=== PATIENT | female | born 1960 | race Caucasian/White ===

== ENCOUNTER → 2017-12-02 | Outpatient (CLI) | payer OTHER ==
[~2017-12-02] MED LIST: ALBUTEROL2.5 MG/31 IH; ALLEGRA180 MG PO; BYSTOLIC 5 MG5 M1 PO; FUROSEMIDE 40 M40 M1 PO; GLUCOPHAGE500 MG PO; K-DUR 20 MEQ T20 MEQ PO; LISINOPRIL20 MG PO; MEDROXYPROGESTERONE IM; PREVACID15 MG PO; PROAIR RESPICL90 MCG IH; PROVENTIL17 G1 IH; SINGULAIR 10 MG10 M1 PO; SYMBICORT160 MCG/4. INH; SYNTHROID50 MCG PO; TOPICORT 0.25%15 G1 TOP; VISTARIL50 MG PO; VITAMIN B-12500 MCG PO; VITAMIN D 5050000 I1 PO; VITAMIN D1000 UNI1 PO
[2017-12-02 07:15] LABS: ABSOLUTE EOSINOPHILS 0.1 thou/uL (0.0-0.7); ABSOLUTE LYMPHOCYTES 1.6 thou/uL (0.8-5.3); ABSOLUTE MONOCYTES 0.5 thou/uL (0.0-1.2); ABSOLUTE NEUTROPHILS 3.3 thou/uL (1.6-8.1); BASOPHILS 0.8 %; EOSINOPHILS 1.8 %; HEMOGLOBIN 14.6 gm/dL (12.0-15.0); LYMPHOCYTES 29.3 %; MCH 29.9 pg (26.0-34.0); MCHC 33.2 g/dL (28.0-37.0); MONOCYTES 8.9 %; MPV 8.8 fl. (7.2-11.1); NUCLEATED RBCS 0 /100WBC; PLATELET COUNT* 231 thou/uL (150-400); POLYS 59.2 %; RBC 4.89 mil/uL (4.20-5.00); RDW-CV 14.3 % (10.5-14.5); WBC 5.5 thou/uL (4.0-11.0)
[2017-12-02 07:35] LABS: ALBUMIN 3.5 g/dL (3.4-5.0); CALCIUM 9.3 mg/dL (8.5-10.1); CREATININE 1.2 mg/dL (0.6-1.3); POTASSIUM 4.1 mmol/L (3.5-5.1); TOTAL BILIRUBIN 0.4 mg/dL (<0.1-1.0); TOTAL PROTEIN 7.2 g/dL (6.4-8.2)
== END ==
LOC: M.RAD 06:49 → M.LAB 06:49
PROVIDERS: Family Medicine
DX: I10 Essential (primary) hypertension (principal); J98.4 Other disorders of lung; E55.9 Vitamin D deficiency, unspecified; E03.9 Hypothyroidism, unspecified; D86.9 Sarcoidosis, unspecified; R53.83 Other fatigue

== ENCOUNTER → 2018-07-01 | Outpatient (CLI) | payer OTHER ==
[2018-07-01 08:45] LABS: ABSOLUTE EOSINOPHILS 0.1 thou/uL (0.0-0.7); ABSOLUTE LYMPHOCYTES 1.5 thou/uL (0.8-5.3); ABSOLUTE MONOCYTES 0.5 thou/uL (0.0-1.2); ABSOLUTE NEUTROPHILS 3.2 thou/uL (1.6-8.1); BASOPHILS 0.6 %; EOSINOPHILS 1.9 %; HEMATOCRIT 43.2 % (37.0-47.0); HEMOGLOBIN 14.1 gm/dL (12.0-15.0); MCHC 32.7 g/dL (28.0-37.0); MCV 91.5 fL (80.0-100.0); MONOCYTES 8.7 %; MPV 9.2 fl. (7.2-11.1); NUCLEATED RBCS 0 /100WBC; PLATELET COUNT* 260 thou/uL (150-400); POLYS 60.8 %; RBC 4.72 mil/uL (4.20-5.00); RDW-CV 14.3 % (10.5-14.5); WBC 5.3 thou/uL (4.0-11.0)
[2018-07-01 09:00] LABS: ANION GAP 3 mmol/L (7-16); BUN 17 mg/dL (7-18); CALCIUM 9.1 mg/dL (8.5-10.1); CHLORIDE 104 mmol/L (98-107); CO2 32 mmol/L (21-32); CREATININE 1.2 mg/dL (0.6-1.3); GLUCOSE 92 mg/dL (70-99); POTASSIUM 3.7 mmol/L (3.5-5.1); SODIUM 139 mmol/L (136-145)
[2018-07-01 09:05] LABS: ALBUMIN 3.6 g/dL (3.4-5.0); ALKALINE PHOSPHATASE 65 U/L (46-116); CHOLESTEROL 189 mg/dL (<200); HDL CHOLESTEROL 81 mg/dL (>40); LDL CHOLESTEROL 84 mg/dL (<100); SGOT 14 U/L (15-37); SGPT 29 U/L (30-65); TC:HDL 2.3 Ratio (Not establshd); TOTAL BILIRUBIN 0.5 mg/dL (<0.1-1.0); TOTAL PROTEIN 7.3 g/dL (6.4-8.2); TRIGLYCERIDE 120 mg/dL (<150); VLDL 24 mg/dL (<40)
[2018-07-01 09:09] LABS: SERUM ASSESSMENT Clear
[2018-07-02 02:09] LABS: GLYCOHEMOGLOBIN (HGB A1C) 5.2 % (4.8-5.6)
== END ==
LOC: M.LAB 06:40
PROVIDERS: Family Medicine
DX: Z13.220 Encounter for screening for lipoid disorders (principal); I10 Essential (primary) hypertension; R53.83 Other fatigue; E03.9 Hypothyroidism, unspecified; E11.9 Type 2 diabetes mellitus without complications

== ENCOUNTER → 2018-12-23 | Outpatient (CLI) | payer OTHER | LOC: M.RAD 14:44 | DX: Z12.31 Encounter for screening mammogram for malignant neoplasm of breast (principal) ==

== ENCOUNTER → 2019-05-12 | Outpatient (CLI) | payer OTHER ==
[2019-05-12 14:47] LABS: ABSOLUTE EOSINOPHILS 0.1 thou/uL (0.0-0.7); ABSOLUTE LYMPHOCYTES 2.2 thou/uL (0.8-5.3); ABSOLUTE MONOCYTES 0.5 thou/uL (0.0-1.2); ABSOLUTE NEUTROPHILS 3.9 thou/uL (1.6-8.1); BASOPHILS 0.7 %; EOSINOPHILS 1.2 %; HEMATOCRIT 43.2 % (37.0-47.0); HEMOGLOBIN 14.5 gm/dL (12.0-15.0); MCHC 33.5 g/dL (28.0-37.0); MCV 89.4 fL (80.0-100.0); MONOCYTES 7.6 %; MPV 8.7 fl. (7.2-11.1); NUCLEATED RBCS 0 /100WBC; PLATELET COUNT* 269 thou/uL (150-400); POLYS 58.5 %; RBC 4.83 mil/uL (4.20-5.00); RDW-CV 14.2 % (10.5-14.5); WBC 6.7 thou/uL (4.0-11.0)
[2019-05-12 15:01] LABS: CALCIUM 8.8 mg/dL (8.5-10.1); CREATININE 1.1 mg/dL (0.6-1.3); POTASSIUM 3.5 mmol/L (3.5-5.1)
== END ==
LOC: M.LAB 14:17
PROVIDERS: Family Medicine
DX: R19.7 Diarrhea, unspecified (principal); R10.32 Left lower quadrant pain

== ENCOUNTER → 2019-08-11 | Outpatient (CLI) | payer OTHER ==
[~2019-08-11] VITALS: Ht 160 cm; Wt 139.7 kg
[2019-08-11] VITALS (8 sets, daily range): BP systolic 124–1321; BP diastolic 58–74
[~2019-08-11] MED LIST changes: +BUPROPION XL300 MG PO; +MAXZIDE 75-501 EACH PO; +TOPROL XL50 MG PO
[2019-08-11 13:36] LABS: HEMATOCRIT 41.3 % (37.0-47.0); MCHC 33.9 g/dL (28.0-37.0); MCV 88.7 fL (80.0-100.0); MPV 9.1 fl. (7.2-11.1); RBC 4.66 mil/uL (4.20-5.00); WBC 5.9 thou/uL (4.0-11.0)
[2019-08-11 13:44] LABS: APTT 24.5 Seconds (25.0-31.3); INR 1.1; PROTIME 10.9 Seconds (9.20-11.50)
[2019-08-11 13:49] LABS: ANION GAP 9 mmol/L (7-16); BUN 22 mg/dL (7-18); CALCIUM 9.2 mg/dL (8.5-10.1); CHLORIDE 103 mmol/L (98-107); CO2 29 mmol/L (21-32); CREATININE 1.3 mg/dL (0.6-1.3); GLUCOSE 95 mg/dL (70-99); POTASSIUM 3.2 mmol/L (3.5-5.1); SODIUM 141 mmol/L (136-145)
[2019-08-11 13:55] LABS: ALBUMIN 3.6 g/dL (3.4-5.0); ALKALINE PHOSPHATASE 59 U/L (46-116); CHOLESTEROL 250 mg/dL (<200); HDL CHOLESTEROL 85 mg/dL (>40); LDL CHOLESTEROL 141 mg/dL (<100); SERUM ASSESSMENT Clear; SGOT 23 U/L (15-37); SGPT 40 U/L (30-65); TC:HDL 2.9 Ratio (Not establshd); TOTAL BILIRUBIN 0.5 mg/dL (<0.1-1.0); TOTAL PROTEIN 6.9 g/dL (6.4-8.2); TRIGLYCERIDE 121 mg/dL (<150); VLDL 24 mg/dL (<40)
--- NOTE | 2019-08-11 15:43 | EKG ---
[place] [address] ELECTROCARDIOGRAM REPORT Name: BALBIR VILLASEÑOR Room: [facility]#: [id number] Admission: 08/11/19 Attend Phys: Roger Mcdonald MD Discharge: Date of : 62 Report #: [id number] THIS REPORT FOR: //name// [facility] Test Date: 2019-08-11 Test Time: 13:09:20 Pat Name: BALBIR VILLASEÑOR Department: Room: Gender: F Solution Manager: : 1960 Requested By: Roger Mcdonald Order Number: [id number] Reading MD: Roger Mcdonald Measurements Intervals [place] Rate: 60 P: 47 AL: 154 QRS: 18 QRSD: 117 T: -11 QT: 437 QTc: 437 Interpretive Statements Sinus rhythm ST depression diffusely, consider ischemia Compared to ECG 10/27/2012 09:24:47 no significant changes noted. Electronically Signed On 08-11-2019 15:43:38 NURSING HOME PHYSICIAN by Roger Mcdonald [email or web address] <ELECTRONICALLY SIGNED> By: Roger Mcdonald MD, [facility] 08/11/19 1543 1309 1309 Roger Mcdonald MD, FACC /EPI
--- NOTE | 2019-08-12 16:52 | CARD ---
[address] [address] CARDIAC CATH REPORT Name: BALBIR VILLASEÑOR Room: [facility] Lynda#: [id number] Admission: 08/11/19 Attend Phys: Roger Mcdonald MD Discharge: Date of : 62 Report #: [id number] THIS REPORT FOR: //name// APPROVED REPORT Study performed: 08/11/2019 14:12:02 Patient Details Patient Status: Out-Patient Room #: The patient is a 58 year-old female Event Personnel Sam Hilton RTR Monitor, Qian Morales RN RN, Rosa Zendejas RTR ScrubTamara Michael Tractor Sweeper Driver Procedures Performed Left Heart Cath w/or w/o Coronaries [id number] [facility] Left Heart Cath w/or w/o Coronaries [id number] [facility] Procedure Narrative The patient was brought electively to the Cardiac Catheterization Laboratory and was prepped and draped in a sterile manner. The right wrist was infiltrated with 2% Lidocaine subcutaneous anesthesia. A Slender Glidesheath sheath was inserted into the right radial artery. Coronary angiography was performed using coronary diagnostic catheters. The right coronary system was accessed and visualized with a DiagnosticDCR: [place] 4.0 5fr catheter. The left coronary system was accessed and visualized with a JL4 6frDiagnostic catheter. The left ventricle was accessed and visualized with a Diagnostic Pigtail catheter. Hemostasis was obtained with manual pressure following sheath removal without any complications. The patient tolerated the procedure well and there were no complications associated with the procedure. There was no hematoma. Intraoperative Conscious Sedation Sedation start time: 2:47pm Case end Time: 3:08pm Fentanyl 75 mcg Versed 2 mg Dose: 1635.03 mGy Contrast Type and Amount: Visipaque 128 ml Diagnostic Cath Left Main The left main coronary artery is normal and bifurcates into a left anterior descending [place] [address] CARDIAC CATH REPORT Name: BALBIR VILLASEÑOR [id number] Admission: 08/11/19 Attend Phys: Roger Mcdonald MD Discharge: Date of : 62 Report #: [id number] LAD The left anterior descending coronary artery is normal in its proximal mid and distal portion. Diagonal 1 First diagonal is a moderate-sized vessel that is normal. Circumflex The circumflex coronary artery is normal in its proximal mid and distal portion. OM1 The first obtuse marginal branch is large branched and normal. OM2 The second obtuse marginal branch is small in caliber and normal. OM3 The third obtuse marginal branches small in caliber and normal. Right Coronary The right coronary artery is normal in its proximal mid and distal portion. R PDA The PDA is normal. Left Ventriculography The left ventricle is normal in size with normal contractility. The left ventricular ejection fraction is estimated to be 60-65%. Left ventricular wall motion abnormalities are not present. Hemodynamics The aortic pressure is 134/54 mmHg with a mean of 56 mmHg. The left ventricular pressure is 128/7 mmHg with a mean of mmHg. The left ventricular end diastolic pressure is 23 mmHg. Conclusion 1. Normal coronary arteries 2. Normal left ventricular systolic function 3. Elevated left ventricular end-diastolic pressure consistent with chronic diastolic heart failure. Recommendations 1. Continue medical management and risk factor modification. <ELECTRONICALLY SIGNED> By: Roger Mcdonald MD, FACC 08/12/191650 50 50Micliliana Mcdonald MD, FACC /INF
== END | disposition home or self-care (01) ==
LOC: M.CL 11:52
PROVIDERS: Internal Medicine Cardiovascular Disease
DX: R94.39 Abnormal result of other cardiovascular function study (principal); I11.0 Hypertensive heart disease with heart failure; I50.1 Left ventricular failure, unspecified; E11.9 Type 2 diabetes mellitus without complications; J45.909 Unspecified asthma, uncomplicated; E03.9 Hypothyroidism, unspecified; Z98.890 Other specified postprocedural states; Z88.2 Allergy status to sulfonamides; Z88.8 Allergy status to other drugs, medicaments and biological substances; Z79.899 Other long term (current) drug therapy; Z79.01 Long term (current) use of anticoagulants

== ENCOUNTER → 2019-12-20 | Outpatient (CLI) | payer OTHER ==
[2019-12-20 11:11] LABS: HEMOGLOBIN 14.8 gm/dL (12.0-15.0); MCH 30.8 pg (26.0-34.0); MCHC 34.2 g/dL (28.0-37.0); NUCLEATED RBCS 0 /100WBC; RBC 4.81 mil/uL (4.20-5.00); WBC 4.5 thou/uL (4.0-11.0)
[2019-12-20 11:14] LABS: ABSOLUTE BASOPHILS 0.1 thou/uL (0.0-0.2); ABSOLUTE EOSINOPHILS 0.1 thou/uL (0.0-0.7); ABSOLUTE LYMPHOCYTES 1.6 thou/uL (0.8-5.3); ABSOLUTE MONOCYTES 0.4 thou/uL (0.0-1.2); ABSOLUTE NEUTROPHILS 2.4 thou/uL (1.6-8.1); BASOPHILS 1.4 %; EOSINOPHILS 1.7 %; HEMATOCRIT 43.4 % (37.0-47.0); LYMPHOCYTES 34.9 %; MCV 90.1 fL (80.0-100.0); MPV 9.1 fl. (7.2-11.1); PLATELET COUNT* 233 thou/uL (150-400); RDW-CV 14.7 % (10.5-14.5)
[2019-12-20 11:14] LABS: URINE BILIRUBIN NEGATIVE (Negative); URINE BLOOD NEGATIVE (Negative); URINE CLARITY CLEAR; URINE COLOR YELLOW; URINE GLUCOSE-RANDOM NEGATIVE (Negative); URINE KETONES NEGATIVE (Negative); URINE LEUKOCYTES-REFLEX NEGATIVE (Negative); URINE NITRITE-REFLEX NEGATIVE (Negative); URINE PROTEIN NEGATIVE (Negative); URINE SPECIFIC GRAVITY 1.025 (1.005-1.030); URINE UROBILINOGEN 0.2 E.U./dl (0.2-1.0)
[2019-12-20 11:22] LABS: ALBUMIN 3.4 g/dL (3.4-5.0); ALKALINE PHOSPHATASE 52 U/L (46-116); ANION GAP 7 mmol/L (7-16); BUN 24 mg/dL (7-18); CALCIUM 8.8 mg/dL (8.5-10.1); CHLORIDE 101 mmol/L (98-107); CHOLESTEROL 219 mg/dL (<200); CO2 31 mmol/L (21-32); CREATININE 1.4 mg/dL (0.6-1.3); GLUCOSE 96 mg/dL (70-99); HDL CHOLESTEROL 78 mg/dL (>40); LDL CHOLESTEROL 111 mg/dL (<100); POTASSIUM 3.7 mmol/L (3.5-5.1); SERUM ASSESSMENT Clear; SGOT 19 U/L (15-37); SGPT 36 U/L (30-65); SODIUM 139 mmol/L (136-145); TC:HDL 2.8 Ratio (Not establshd); TOTAL BILIRUBIN 0.5 mg/dL (<0.1-1.0); TOTAL PROTEIN 6.9 g/dL (6.4-8.2); TRIGLYCERIDE 153 mg/dL (<150); VLDL 31 mg/dL (<40)
[2019-12-21 02:07] LABS: GLYCOHEMOGLOBIN (HGB A1C) 5.4 % (4.8-5.6)
== END ==
LOC: M.LAB 10:51
PROVIDERS: Family Medicine
DX: E03.9 Hypothyroidism, unspecified (principal); E11.9 Type 2 diabetes mellitus without complications; I10 Essential (primary) hypertension; Z68.43 Body mass index [BMI] 50.0-59.9, adult

== ENCOUNTER → 2020-03-02 | Outpatient (CLI) | payer OTHER | LOC: M.MRI 06:16 | PROVIDERS: ATTEND Family Medicine | DX: M51.27 Other intervertebral disc displacement, lumbosacral region (principal); M25.78 Osteophyte, vertebrae; M48.061 Spinal stenosis, lumbar region without neurogenic claudication; W19.XXXA Unspecified fall, initial encounter; M25.461 Effusion, right knee; M41.86 Other forms of scoliosis, lumbar region ==

== ENCOUNTER 2020-08-22 15:09 | Observation (INO) | payer OTHER ==
[~2020-08-22] VITALS: Ht 157.5 cm; Wt 160.1 kg
[~2020-08-22 15:09] MED LIST changes: -TOPICORT 0.25%15 G1 TOP; +TOPICORT 0.25%15 GM TOP; -VITAMIN D 5050000 I1 PO; +VITAMIN D250 MCG PO
[2020-08-22 15:14] VITALS: BP 172/74
[2020-08-22 16:03] LABS: ABSOLUTE BASOPHILS 0.1 thou/uL (0.0-0.2); ABSOLUTE EOSINOPHILS 0.1 thou/uL (0.0-0.7); ABSOLUTE LYMPHOCYTES 1.8 thou/uL (0.8-5.3); ABSOLUTE MONOCYTES 0.6 thou/uL (0.0-1.2); BASOPHILS 0.9 %; EOSINOPHILS 2.1 %; HEMATOCRIT 39.5 % (37.0-47.0); HEMOGLOBIN 13.1 gm/dL (12.0-15.0); LYMPHOCYTES 27.8 %; MCH 29.8 pg (26.0-34.0); MCHC 33.1 g/dL (28.0-37.0); MCV 90.1 fL (80.0-100.0); MONOCYTES 9.1 %; NUCLEATED RBCS 0 /100WBC; PLATELET COUNT* 228 thou/uL (150-400); POLYS 60.1 %; RBC 4.39 mil/uL (4.20-5.00); RDW-CV 15.1 % (10.5-14.5); WBC 6.6 thou/uL (4.0-11.0)
[2020-08-22 16:11] LABS: CALCIUM 9.1 mg/dL (8.5-10.1); CREATININE 1.5 mg/dL (0.6-1.3)
[2020-08-22 16:16] LABS: APTT 23.6 Seconds (25.0-31.3); PROTIME 10.6 Seconds (9.20-11.50)
[2020-08-22 16:22] LABS: ALBUMIN 3.1 g/dL (3.4-5.0); TOTAL BILIRUBIN 0.4 mg/dL (<0.1-1.0); TOTAL PROTEIN 6.7 g/dL (6.4-8.2)
--- NOTE | 2020-08-22 16:45 | EKG ---
[place] [address] ELECTROCARDIOGRAM REPORT Name: BALBIR VILLASEÑOR [facility]#: [id number] Admission: 08/22/20 Attend Phys: Discharge: Date of : 62 Date of Service: 08/22/20 1516 Report #: [id number] THIS REPORT FOR: //name// [facility] ED Test Date: 2020-08-22 Test Time: 15:16:03 Pat Name: BALBIR VILLASEÑOR Department: Room: Gender: F Composition Instructor: [place] : 1960 Requested By: Eduin Kasper Order Number: [id number] MD: Campos Crespo Measurements Intervals [place] Rate: 65 P: 43 NM: 154 QRS: 23 QRSD: 101 T: 5 QT: 398 QTc: 414 Interpretive Statements Sinus rhythm Left atrial enlargement Minimal ST depression, inferior leads Compared to ECG 08/11/2019 13:09:20 ST (T wave) deviation still present Electronically Signed On 08-22-2020 16:45:08 TREASURY AGENT by Campos Crespo [email or web address] <ELECTRONICALLY SIGNED> By: Campos Crespo MD, [facility] 08/22/20 1645 1516 1516 Campos Crespo MD, [facility] /EPI
[2020-08-22 22:41] VITALS: BP 163/70
[2020-08-23 02:42] VITALS: BP 140/60
[2020-08-23 05:40] VITALS: BP 112/69
[2020-08-23 10:00] VITALS: BP 128/70
[2020-08-23 10:08] LABS: CHOLESTEROL 209 mg/dL (<200); HDL CHOLESTEROL 73 mg/dL (>40); LDL CHOLESTEROL 114 mg/dL (<100); TC:HDL 2.9 Ratio (Not establshd); TRIGLYCERIDE 111 mg/dL (<150); TROPONIN-I LEVEL <0.06 ng/mL (<0.06); VLDL 22 mg/dL (<40)
[2020-08-23 10:11] LABS: SERUM ASSESSMENT Clear
[2020-08-23 13:15] VITALS: BP 128/70
[2020-08-23] MEDS ORDERED: LIPITOR10 MG PO (13:52)
[2020-08-23] MEDS ORDERED: PREDNISONE 10 M10 MG PO (13:52)
[2020-08-23 15:32] VITALS: BP 120/60
--- NOTE | 2020-08-23 16:32 | 2DMMODE ---
[place] [address] 2 D/M-MODE ECHOCARDIOGRAM Name: BALBIR VILLASEÑOR Room: [address] Rory Howell#: [id number] Admission: 08/22/20 Attend Phys: Stevan Rogers Discharge: Date of : 62 Date of Service: 08/23/20 1632 Report #: [id number] THIS REPORT FOR: cc: Brenda Grubbs Maggie M. DO Liston, Michael J. MD [facility] ~ APPROVED REPORT Study performed: 08/23/2020 14:39:29 EXAM: Comprehensive 2D, Doppler, and color-flow Echocardiogram Patient Location: In-Patient Room #: 55 Status: routine BSA: 2.44 HR: 77 bpm BP: 112/69 mmHg Rhythm: NSR Other Information Study Quality: Good Indications Chest Pain 2D Dimensions IVSd: 12.58 (7-11mm) LVOT Diam: 20.19 (18-24mm) LVDd: 51.61 mm PWd: 10.27 (7-11mm) Ascending Ao: 32.89 (22-36mm) LVDs: 30.58 (25-40mm) Aortic Root: 29.66 mm Volumes Left Atrial Volume (Systole) LA ESV Index: 17.90 mL/m2 Aortic Valve AoV Peak Yung.: 1.67 m/s AO Peak Gr.: 11.13 mmHg LVOT Max P.31 mmHg AO Mean Gr.: 6.65 mmHg LVOT Mean P.57 mmHg LVOT Max V: 1.35 m/s AO V2 VTI: 37.21 cm LVOT Mean V: 0.86 m/s MARIA TERESA (VTI): 2.66 cm2 LVOT V1 VTI: 30.95 [place] [address] 2 D/M-MODE ECHOCARDIOGRAM Name: BALBIR VILLASEÑOR Room: [address] M.R.#: [id number] Admission: 08/22/20 Attend Phys: Stevan Rogers Discharge: Date of : 62 Date of Service: 08/23/20 1632 Report #: [id number] Mitral Valve E/A Ratio: 1.20 MV Decel. Time: 190.62 ms MV E Max Yung.: 1.11 m/s MV PHT: 55.28 ms MVA (PHT): 3.98 cm2 TDI E/Lateral E': 7.40 E/Medial E': 6.53 Medial E' Yung.: 0.17 m/s Lateral E' Yung.: 0.15 m/s Pulmonary Valve PV Peak Yung.: 1.08 m/s PV Peak Gr.: 4.65 mmHg Left Ventricle The left ventricle is normal size. There is normal LV segmental wall motion. There is normal left ventricular wall thickness. Left ventricular systolic function is normal. LVEF is 55-60%. The left ventricular diastolic function is normal. Right Ventricle The right ventricle is normal size. The right ventricular systolic function is normal. Atria The left atrium size is normal. The right atrium size is normal. Aortic Valve The aortic valve is normal in structure. No aortic regurgitation is present. There is no aortic valvular stenosis. Mitral Valve The mitral valve is normal in structure. There is no mitral valve regurgitation noted. No evidence of mitral valve stenosis. Tricuspid Valve The tricuspid valve is normal in structure. Unable to assess PA pressure. Trace tricuspid regurgitation. Pulmonic Valve The pulmonary valve is normal in structure. There is no pulmonic valvular regurgitation[place] [address] 2 D/M-MODE ECHOCARDIOGRAM Name: BALBIR VILLASEÑOR [address]#: [id number] Admission: 08/22/20 Attend Phys: Stevan Rogers Discharge: Date of : 62 Date of Service: 08/23/20 1632 Report #: [id number] The aortic root is normal in size. The inferior vena cava is not visualized. Pericardium There is no pericardial effusion. <Conclusion> The left ventricle is normal size. There is normal left ventricular wall thickness. Left ventricular systolic function is normal. LVEF is 55-60%. The left ventricular diastolic function is normal. The inferior vena cava is not visualized. <ELECTRONICALLY SIGNED> By: Roger Mcdonald MD, FACC 08/23/20 1632 163 163 Roger Mcdonald MD, FACC /INF
--- NOTE | 2020-08-23 16:47 | EKG ---
[place] [address] ELECTROCARDIOGRAM REPORT Name: CHARLEENBALBIR Irene Room: [address]R.#: [id number] Admission: 08/22/20 Attend Phys: Stevan Rogers Discharge: Date of : 62 Date of Service: 08/23/20 1128 Report #: [id number] THIS REPORT FOR: //name// [facility] Test Date: 2020-08-23 Test Time: 11:28:50 Pat Name: BALBIR VILLASEÑOR Department: Room: [facility] Gender: F Mingler Operator: : 1960 Requested By: Stevan Rogers Order Number: [id number] Yared MD: Hill Velasquez Measurements Intervals [place] Rate: 58 P: 54 [place]: 152 QRS: 34 QRSD: 104 T: -12 QT: 425 QTc: 418 Interpretive Statements Sinus rhythm Probable left atrial enlargement Borderline repolarization abnormality Compared to ECG 08/22/2020 15:16:[address] segment depression is less prominent Electronically Signed On 08-23-2020 16:47:28 CERTIFIED TEACHER ASSISTANT by Hill Velasquez [email or web address] <ELECTRONICALLY SIGNED> By: Hill Velasquez MD, FAC 08/23/20 1647 1128 1128 Hill Velasquez MD, [facility] /EPI
[2020-08-23 17:04] VITALS: BP 120/60
--- NOTE | 2020-08-23 19:14 | NUR ---
PT ADMITTED TO ROOM 211 VIA CART FROM ED AT APPROXIMATELY 1330. REPORT RECEIVED FROM SAMIR RODRIGUEZ. PT ORIENTED TO ROOM AND CALL LIGHT. ADMISSION ASSESSMENT AND HISTORY COMPLETED CHARTED. SEPSIS NEGATIVE. PT DENIES ANY CHEST PAIN OR SHORTNESS OF BREATH. TRACING SR ON THE CERTIFIED ORTHOPTIST. ON RA SAT UPPER 90'S. PT UP AD ROMIE IN ROOM. CARDIO CONSULT IN PLACE- PER FATMATA ARANDA NP OK FOR PT TO DISCHARGE AFTER ECHO COMPLETED AND INTERPRETED. ECHO COMPLETED-REFER TO RESULTS. PREDNISONE AND LIPITOR CALLED INTO PHARMACY PER DR SARMIENTO. DISCHARGE ORDERS RECEIVED. DISCHARGE INSTRUCTIONS, CARE NOTES, SCRIPTS AND FOLLOW UP APPTS GIVEN TO PT. PT COMMUNICATES UNDERSTANDING OF DISCHARGE TEACHING. IV AND CERTIFIED ORTHOPTIST REMOVED. PT AWAITING RIDE AT THIS TIME.
== END 2020-08-23 19:24 | disposition home or self-care (01) ==
LOC: M.ERS 15:09 → M.TBA-ER 17:31 → M.2W 08-23 13:35
PROVIDERS: Emergency Medicine Emergency Medical Services; ADMIT Internal Medicine; ATTEND Internal Medicine
DX: J45.909 Unspecified asthma, uncomplicated (principal); R07.89 Other chest pain; F32.9 Major depressive disorder, single episode, unspecified; G47.33 Obstructive sleep apnea (adult) (pediatric); E03.9 Hypothyroidism, unspecified; I10 Essential (primary) hypertension; E66.01 Morbid (severe) obesity due to excess calories; E11.9 Type 2 diabetes mellitus without complications; Z87.891 Personal history of nicotine dependence; Z79.899 Other long term (current) drug therapy; Z68.44 Body mass index [BMI] 60.0-69.9, adult; Z20.828 Contact with and (suspected) exposure to other viral communicable diseases

== ENCOUNTER → 2020-09-06 | Outpatient (CLI) | payer OTHER ==
[~2020-09-06] MED LIST changes: +LIPITOR10 MG PO; +PREDNISONE 10 M10 MG PO
== END ==
LOC: M.CT 10:08
PROVIDERS: ATTEND Family Medicine
DX: J98.4 Other disorders of lung (principal); R16.0 Hepatomegaly, not elsewhere classified

== ENCOUNTER → 2020-11-22 | Outpatient (CLI) | payer OTHER ==
--- NOTE | 2020-11-27 00:03 | PF ---
[address] [address] PULMONARY FUNCTION REPORT Name: BALBIR VILLASEÑOR Room: [facility]#: [id number] Admission: 11/22/20 Attend Phys: Andrew Rosario MD Discharge: Date of : 62 Report #: [id number] THIS REPORT FOR: cc: Brenda Grubbs Maggie M. DO ~ Andrew Rosario MD DATE OF SERVICE: 11/22/2020 The FEV1/FVC ratio is normal at 78% with an FVC normal at 98% and FEV1 normal at 91%. The [id number] is decreased to 49%. The total lung capacity is normal, but close to the upper limit of normal at 111%. The residual volume is normal at 95%. The DLCO as adjusted for hemoglobin is normal at 88%. The patient's flow volume loop is concave upwards. The patient's flow volume loop is also blunted and inferiorly. IMPRESSION: 1. Minimal obstruction without evidence of reversibility. The patient's FEV1 is noted to be 2.16 liters. 2. In addition to the flow volume loop being concave upwards, which appears to be secondary to obstruction. The flow volume loop is also blunted inferiorly. This inferior blunting of the flow volume loop could be a normal variant; however, in the correct clinical circumstances, a variable upper airway obstruction can also lead to this picture. Clinical correlation is advised. 3. The lung volumes are normal with the total lung capacity is while within the normal range close to the upper limit of normal range likely due to underlying obstructive lung disease. 4. The DLCO is normal. <ELECTRONICALLY SIGNED> By: Andrew Rosario MD 11/27/20 0003 2215Adenisa Rosario MD /nt
== END ==
LOC: M.PUL 15:12
PROVIDERS: ATTEND Internal Medicine Critical Care Medicine
DX: R06.00 Dyspnea, unspecified (principal); Z88.8 Allergy status to other drugs, medicaments and biological substances; Z88.2 Allergy status to sulfonamides; Z88.5 Allergy status to narcotic agent

== ENCOUNTER → 2020-11-30 | Outpatient (CLI) | payer OTHER ==
--- NOTE | 2020-12-20 15:05 | SLEEP ---
[address] [address] SLEEP STUDY REPORT Name: BALBIR VILLASEÑOR Room: [facility]#: [id number] Admission: 11/30/20 Attend Phys: Andrew Rosario MD Discharge: Date of : 62 Report #: [id number] THIS REPORT FOR: cc: Brenda Grubbs Maggie M. DO Pervez, Adeel MD ~ This study has been reviewed in its entirety by a board certified sleep specialist DATE OF SERVICE: 11/30/2020 SLEEP STUDY INDICATION FOR SLEEP STUDY: Excessive daytime sleepiness and obstructive sleep apnea. INTERPRETATION: Total duration of the study is 436 minutes out of which she was asleep for 318 minutes with an overall sleep efficiency of 73%. Sleep onset was initially delayed occurring about half an hour after lying down in bed. REM onset was delayed to 210 minutes after sleep onset. N1 sleep duration is 11%, N2 duration is 54%, N3 duration 11% as well and REM duration is 23%. This is a split night sleep study. During initial part of the sleep study, the patient was not on positive airway pressure therapy for 138 minutes out of which she was asleep for 81 minutes. This entire duration was in non-REM sleep. The patient at this time did have multiple sleep-related respiratory events. These included 12 obstructive apneas in addition to 17 hypopneas and 10 respiratory effort-related arousals. The patient's overall apnea-hypopnea index was elevated to 21.5. Body position data indicates that the entire duration of sleep recorded during the diagnostic portion of the sleep study was on the left side. Mean heart rate at this time was 68, periodic limb movement index was elevated to 36. Most limb movements, however, were not associated with arousals. Periodic limb movement index with arousals was 9.6. There was significant sleep fragmentation observed with an arousal index elevated to 53. The patient was subsequently placed on a CPAP and was observed on CPAP therapy for 298 minutes. This included 286 minutes of sleep time, which in turn included 74 minutes of REM sleep. Mean heart rate was now 63. Periodic limb movement index improved to 13.2. Review of the CPAP titration indicates the patient did have a favorable response to CPAP therapy; however, adequate control [place] [address] SLEEP STUDY REPORT Name: BALBIR VILLASEÑOR Room: [facility]#: [id number] Admission: 11/30/20 Attend Phys: Andrew Rosario MD Discharge: Date of : 62 Report #: [id number] respirations could not be achieved and some hypopneas respiratory effort-related arousals as well as desaturations continued to occur. In summary, therefore, there is a partial but inadequate response to CPAP therapy. IMPRESSION: 1. Obstructive sleep apnea with an apnea-hypopnea index of 21.5. The patient spent 5.3 minutes below an O2 saturation of 90% during the diagnostic portion of the sleep study. 2. There is a partial but inadequate response to continuous positive airway pressure therapy as above. The patient has also reported that despite regular use of continuous positive airway pressure, there is considerable daytime sleepiness persisting. RECOMMENDATIONS: 1. I recommend proceeding to a repeat sleep study for a BiPAP titration. We will subsequently plan to switch her current CPAP over to BiPAP. 2. Weight loss is strongly recommended. 3. Recommend avoiding driving or other activities requiring vigilance if drowsy. This entire sleep study was reviewed by board certified sleep physician. <ELECTRONICALLY SIGNED> By: Andrew Rosario MD 12/20/20 1505 1448 1500Andrew Rosario MD /nt
== END ==
LOC: M.SLEEPLAB 11-23 20:00
PROVIDERS: ATTEND Internal Medicine Critical Care Medicine
DX: G47.33 Obstructive sleep apnea (adult) (pediatric) (principal); Z88.8 Allergy status to other drugs, medicaments and biological substances

== ENCOUNTER → 2021-01-24 | Outpatient (CLI) | payer OTHER | LOC: M.SLEEPLAB 21:00 | PROVIDERS: ATTEND Internal Medicine Critical Care Medicine | DX: G47.33 Obstructive sleep apnea (adult) (pediatric) (principal); Z88.8 Allergy status to other drugs, medicaments and biological substances ==

== ENCOUNTER → 2021-01-31 | Outpatient (CLI) | payer OTHER ==
[2021-01-31 12:18] LABS: ABSOLUTE EOSINOPHILS 0.2 thou/uL (0.0-0.7); ABSOLUTE LYMPHOCYTES 1.7 thou/uL (0.8-5.3); ABSOLUTE MONOCYTES 0.5 thou/uL (0.0-1.2); ABSOLUTE NEUTROPHILS 3.5 thou/uL (1.6-8.1); BASOPHILS 0.6 %; EOSINOPHILS 3.1 %; HEMOGLOBIN 13.7 gm/dL (12.0-15.0); LYMPHOCYTES 28.9 %; MCH 29.7 pg (26.0-34.0); MCHC 33.3 g/dL (28.0-37.0); MCV 89.1 fL (80.0-100.0); MONOCYTES 8.9 %; MPV 8.5 fl. (7.2-11.1); NUCLEATED RBCS 0 /100WBC; PLATELET COUNT* 231 thou/uL (150-400); POLYS 58.5 %; RBC 4.61 mil/uL (4.20-5.00); RDW-CV 14.9 % (10.5-14.5)
[2021-01-31 12:22] LABS: URINE BILIRUBIN NEGATIVE (Negative); URINE BLOOD NEGATIVE (Negative); URINE CLARITY CLEAR; URINE COLOR YELLOW; URINE GLUCOSE-RANDOM NEGATIVE (Negative); URINE KETONES NEGATIVE (Negative); URINE LEUKOCYTES-REFLEX NEGATIVE (Negative); URINE NITRITE-REFLEX NEGATIVE (Negative); URINE PROTEIN NEGATIVE (Negative); URINE SPECIFIC GRAVITY 1.025 (1.005-1.030); URINE UROBILINOGEN 0.2 E.U./dl (0.2-1.0)
[2021-01-31 12:30] LABS: ALBUMIN 3.4 g/dL (3.4-5.0); ALKALINE PHOSPHATASE 58 U/L (46-116); ANION GAP 6 mmol/L (7-16); BUN 20 mg/dL (7-18); CALCIUM 9.6 mg/dL (8.5-10.1); CHLORIDE 102 mmol/L (98-107); CHOLESTEROL 215 mg/dL (<200); CO2 32 mmol/L (21-32); CREATININE 1.3 mg/dL (0.6-1.3); GLUCOSE 91 mg/dL (70-99); HDL CHOLESTEROL 78 mg/dL (>40); LDL CHOLESTEROL 112 mg/dL (<100); POTASSIUM 3.3 mmol/L (3.5-5.1); SGOT 25 U/L (15-37); SGPT 49 U/L (30-65); SODIUM 140 mmol/L (136-145); TC:HDL 2.8 Ratio (Not establshd); TOTAL BILIRUBIN 0.6 mg/dL (<0.1-1.0); TOTAL PROTEIN 7.1 g/dL (6.4-8.2); TRIGLYCERIDE 128 mg/dL (<150); VLDL 26 mg/dL (<40)
[2021-01-31 12:32] LABS: SERUM ASSESSMENT Clear
[2021-02-01 02:06] LABS: GLYCOHEMOGLOBIN (HGB A1C) 5.7 % (4.8-5.6)
== END ==
LOC: M.LAB 11:58
PROVIDERS: ATTEND Family Medicine
DX: E11.9 Type 2 diabetes mellitus without complications (principal); E03.9 Hypothyroidism, unspecified; I10 Essential (primary) hypertension; Z68.44 Body mass index [BMI] 60.0-69.9, adult

== ENCOUNTER → 2021-03-18 | Outpatient (CLI) | payer OTHER | LOC: M.LAB 14:04 | PROVIDERS: ATTEND Internal Medicine Critical Care Medicine | DX: Z12.31 Encounter for screening mammogram for malignant neoplasm of breast (principal); D86.9 Sarcoidosis, unspecified; N64.89 Other specified disorders of breast ==

== ENCOUNTER → 2021-04-15 | Outpatient (CLI) | payer OTHER | LOC: M.RAD 14:23 | PROVIDERS: ATTEND Family Medicine | DX: M47.817 Spondylosis without myelopathy or radiculopathy, lumbosacral region (principal); M25.78 Osteophyte, vertebrae; M54.41 Lumbago with sciatica, right side ==

== ENCOUNTER → 2021-04-29 | Outpatient (CLI) | payer OTHER | LOC: M.MRI 04-25 13:30 | PROVIDERS: ATTEND Family Medicine | DX: M51.36 Other intervertebral disc degeneration, lumbar region (principal); M47.816 Spondylosis without myelopathy or radiculopathy, lumbar region; M48.061 Spinal stenosis, lumbar region without neurogenic claudication ==